=== PATIENT | female | born 1995 | race Caucasian/White ===

== ENCOUNTER 2016-09-21 21:54 | Emergency (ER) | payer OTHER ==
[~2016-09-21] VITALS: Ht 165.1 cm; Wt 93.2 kg
[2016-09-21 22:23] LABS: POINT-OF-CARE METER ID UU13113778
[2016-09-21] MEDS ORDERED: MOTRIN800 MG PO (23:32)
[2016-09-21] MEDS ORDERED: ZOFRAN ODT4 MG PO (23:32)
[2016-09-21 23:42] VITALS: BP 134/82
== END 2016-09-21 23:44 | disposition home or self-care (01) ==
LOC: EME 21:54
DX: G43.909 Migraine, unspecified, not intractable, without status migrainosus (principal); R11.2 Nausea with vomiting, unspecified
CPT/HCPCS: 82948; 99281; 99284

== ENCOUNTER 2016-12-05 17:32 | Inpatient (IN) | payer OTHER ==
[~2016-12-05] VITALS: Ht 165.1 cm; Wt 98.1 kg
[~2016-12-05 17:32] MED LIST: MOTRIN800 MG PO; ZOFRAN ODT4 MG PO
[2016-12-05 19:57] LABS: HEMATOCRIT 43.4 % (36.0-46.0); MCH 29.6 PG (29.0-34.0); MCHC 33.4 G/DL (30.0-36.0); MCV 88.6 FL (83-99); MEAN PLAT.VOLUME 10.9 uM^3 (9.5-12.4); PLATELET COUNT 284 K/uL (156-360); RBC DIS.WIDTH-CV 12.9 % (11.8-14.6); RBC DIS.WIDTH-SD 41.7 % (39-53); WHITE BLOOD COUNT 8.9 K/uL (4.1-10.2)
[2016-12-05 20:07] LABS: CHLORIDE 107 mEq/L (99-109); POTASSIUM 4.1 mEq/L (3.7-5.4); SODIUM 142 mEq/L (136-147)
[2016-12-05 20:09] LABS: GLUCOSE 78 mg/dL (70-99)
[2016-12-05 20:10] LABS: ANION GAP 10 MEQ/L (2-14)
[2016-12-05 20:12] LABS: SERUM ETHYL ALCOHOL < 10 mg/dL
[2016-12-05 20:13] LABS: GFR ESTIMATE (CALCULATED) > 59 mL/min/
[2016-12-05 20:15] LABS: UREA NITROGEN (BUN) 9 mg/dL (9-23)
[2016-12-05 20:16] LABS: SALICYLATE < 5.0 MG/DL (15-30)
[2016-12-05 20:59] LABS: AMPHETAMINE NEGATIVE (500 ng/mL); BARBITURATES NEGATIVE (200 ng/mL); BENZODIAZEPINES NEGATIVE (150 ng/mL); COCAINE NEGATIVE (150 ng/mL); INTERNAL CONTROLS VALID? YES; METHADONE NEGATIVE (200 ng/mL); METHAMPHETAMINE NEGATIVE (500 ng/mL); OPIATES (MORPHINE) NEGATIVE (100 ng/mL); OXYCODONE NEGATIVE (100 ng/mL); PHENCYCLIDINE NEGATIVE (25 ng/mL); PROPOXYPHENE NEGATIVE (300 ng/mL); THC CANNABINOIDS PRESUMPTIVE POSITIVE (50 ng/mL); TRICYCLIC ANTIDEPRESSANTS NEGATIVE (300 ng/mL)
[2016-12-05 21:00] LABS: ADD MEDTOX COMMENT Y
[2016-12-05 21:01] VITALS: BP 137/73
[2016-12-05 21:03] VITALS: BP 137/73
[2016-12-06] MEDS ORDERED: EFFEXOR XR37.5 MG PO (07:33)
[2016-12-06] MEDS ORDERED: KLONOPIN0.5 M1 PO (07:33)
[2016-12-06 07:45] VITALS: BP 118/75
[2016-12-06 15:32] VITALS: BP 128/67
[2016-12-07 07:50] VITALS: BP 136/82
[2016-12-07] MEDS ORDERED: SERTRALINE HCL25 MG PO (10:40)
== END 2016-12-07 13:04 | disposition home or self-care (01) | DRG 885 ==
LOC: EME 17:32 → 1WEST 19:20 → EDOF 19:20 → 1WEST 20:51
PROVIDERS: Emergency Medicine
DX: F33.9 Major depressive disorder, recurrent, unspecified (principal); F41.0 Panic disorder [episodic paroxysmal anxiety]; F43.10 Post-traumatic stress disorder, unspecified; S51.812A Laceration without foreign body of left forearm, initial encounter; R45.851 Suicidal ideations; W45.8XXA Other foreign body or object entering through skin, initial encounter; Y93.9 Activity, unspecified; Y92.9 Unspecified place or not applicable
CPT/HCPCS: 80048; 84999; 85027; 99281; 99285; G0480

== ENCOUNTER → 2017-10-04 | Outpatient (CLI) | payer BC ==
[~2017-10-04] VITALS: Ht 165.1 cm; Wt 96.0 kg
[~2017-10-04] MED LIST changes: +EFFEXOR XR37.5 MG PO; +KLONOPIN0.5 M1 PO; +PRENATAL TABLE1 EAC3 PO; +PROGESTERONE200 MG PO; +SERTRALINE HCL25 MG PO; +ZOLOFT25 MG PO
[2017-10-04 10:18] VITALS: BP 131/73
== END | disposition home or self-care (01) ==
LOC: IVINF 09:55
DX: Z34.83 Encounter for supervision of other normal pregnancy, third trimester (principal); Z3A.30 30 weeks gestation of pregnancy; Z67.21 Type B blood, Rh negative
CPT/HCPCS: 96372; J2790